=== PATIENT | male | born 1935 | race Caucasian/White ===

== ENCOUNTER 2019-09-09 07:18 | Day surgery (SDC) | payer OTHER ==
[~2019-09-09] VITALS: Ht 182.9 cm; Wt 78.9 kg
[~2019-09-09 07:18] MED LIST: ASPIR-LOW81 MG PO; ATENOLOL 50MG T50 M1 PO; FISH OIL 1,0001 EAC9 PO; LATANOPROST 0.2.5 ML OPHTHALMIC; LOSARTAN POTASS50 MG PO; SYSTANE 0.3-0.415 ML OPHTHALMIC; ZOCOR 20 MG TAB20 M1 PO
--- NOTE | 2019-09-13 06:14 | O ---
[facility] [place] [address] OPERATIVE REPORT Name: JULIUS MCKINNEY Room #: DEP [facility].#: [id number] Admission: 09/09/19 Attend Phys: Mike Kaplan MD Discharge: 09/09/19 Date of : 39 Report #: [id number] THIS REPORT FOR: //name// CC: WALTER Kaplan DATE OF SERVICE: 09/09/2019 TRANSPORT RN: None. PREOPERATIVE DIAGNOSIS: Right lower lid entropion. POSTOPERATIVE DIAGNOSIS: Right lower lid entropion. OPERATION PERFORMED: Right lower lid entropion repair. ANESTHESIA: Local with IV sedation. COMPLICATIONS: None. 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 The current procedures are being undertaken in order to improve the patient's level of comfort and visual function. Informed consent was obtained to include but not limited to the loss of vision, bleeding, infection, scarring, failure to improve the problem and need for further surgery. DESCRIPTION OF OPERATION: The patient was taken to the operating room, where 2% Xylocaine with epinephrine mixed with equal parts of 0.75% Marcaine with Wydase was administered transcutaneously and transconjunctivally to each lower lid and lateral canthal area. The patient was then prepped and draped in the usual sterile fashion. A Juliet clamp was used to clamp the left lateral canthus, following which a sharp canthotomy and cantholysis were performed. Hemostasis was achieved with a monopolar cautery, as it was throughout the case. A tarsal strip was prepared laterally, removing the lash bearing portion of the redundant lid margin and the redundant tarsal plate. A transconjunctival dissection was then undertaken just inferior to the lower border of the tarsal plate. The lower lid retractors were disinserted from the inferior border of the tarsal plate. The lower lid retractors were then advanced and reattached to the anterior surface of the tarsal plate with mattress 5-0 chromic sutures passed transconjunctivally and secured in the infraciliary margin. The tarsal strip was then secured laterally with 2 interrupted 5-0 Prolene sutures. The subcutaneous structures and the skin were then closed with multiple interrupted [address] [address] OPERATIVE REPORT Name: JULIUS MCKINNEY Room #: DEP [facility]#: [id number] Admission: 09/09/19 Attend Phys: Mike Kaplan MD Discharge: 09/09/19 Date of : 39 Report #: [id number] 6-0 plain gut sutures so the lateral canthal angle was sharply reformed. The wounds were then cleaned and dressed with ophthalmic antibiotic ointment. The patient was then transported to the recovery area, having tolerated the procedure well with no anesthetic or operative complications being noted. <ELECTRONICALLY SIGNED> By: Mike Kaplan MD 09/13/19 [id number] Mike Kaplan MD /zeus
== END 2019-09-09 10:37 | disposition home or self-care (01) ==
LOC: OR 07:18 → TBA 07:19 → OR 10:37
DX: H02.002 Unspecified entropion of right lower eyelid (principal); I10 Essential (primary) hypertension; E78.5 Hyperlipidemia, unspecified; Z98.890 Other specified postprocedural states; Z79.899 Other long term (current) drug therapy; Z79.82 Long term (current) use of aspirin
CPT/HCPCS: 50010; 50101; 50386; 50398; 51636; 56527; 56531; 62110; 62850; 70005